=== PATIENT | male | born 1940 ===

== ENCOUNTER 2021-11-09 06:31 | Day surgery (SDC) | payer OTHER ==
[~2021-11-09] VITALS: Ht 162.6 cm; Wt 76.2 kg
[~2021-11-09 06:31] MED LIST: ATORVASTATIN CA10 MG PO; COZAAR25 MG PO; NORVASC5 MG PO
== END 2021-11-09 11:45 | disposition home or self-care (01) ==
LOC: CIR.AMB 06:31
PROVIDERS: ATTEND Urology
DX: D41.4 Neoplasm of uncertain behavior of bladder (principal); Z87.891 Personal history of nicotine dependence; J34.9 Unspecified disorder of nose and nasal sinuses; I10 Essential (primary) hypertension; Z20.822 Contact with and (suspected) exposure to COVID-19; F10.21 Alcohol dependence, in remission